=== PATIENT | female | born 1975 | race Asian ===

== ENCOUNTER 2020-03-23 12:42 | Emergency (ER) | payer OTHER ==
[~2020-03-23] VITALS: Ht 165.1 cm; Wt 58.5 kg
[2020-03-23 12:50] VITALS: Ht 165.1 cm; Wt 58.5 kg
[2020-03-23 13:42] VITALS: BP 115/65
== END 2020-03-23 13:42 | disposition left against medical advice (07) ==
LOC: ED 12:42
DX: R11.2 Nausea with vomiting, unspecified (principal); R20.2 Paresthesia of skin